=== PATIENT | female | born 1990 | race Caucasian/White ===

== ENCOUNTER 2017-02-28 02:33 | Observation (INO) | payer OTHER, BC ==
[2017-02-28 05:23] VITALS: BP 121/71
[2017-02-28] MEDS ORDERED: Terbutaline 1 MG/ML SDV SUBCUT ONE (07:48)
[2017-02-28] MEDS ORDERED: Betamethasone Acetate/Betamethasone Sod Phosphate 30 MG/5 ML MDV IM ONE (07:49)
[2017-02-28] MEDS ORDERED: Ampicillin 2 GM in Sodium Chloride 0.9% 100 ML IV ONE (07:50)
--- NOTE | 2017-02-28 08:29 | PCM.SN ---
- Free Text/Narrative Note: Evaluation Note OB Physician: Dr. Willard [place] HPI: Mabel Wells is a 26-year-old at at 34 weeks 6 days by LMP consistent with 12 week ultrasound who presents following a trauma to her abdomen after stepping off of a letter at work. She reports that around 12:20 AM while she was working she stepped off a ladder and her left leg got caught in his her abdomen and left breast. She reports that after this happened she felt okay but then had decreased movement and started having contractions. She reports that the contractions are about every 5 minutes apart and were strong enough to be felt. She denies any vaginal bleeding or leaking of fluid. After several hours she did start to feel the baby move more frequently. She denies any sharp abdominal pain. Denies any dysuria or urinary frequency. Her care has been with Dr. Willard [place] and is complicated by: 1. Nausea and vomiting in early in the , currently resolved Vitals: Vital Signs - 8 hr 02/28/17 03:00 Temperature [ 37.1 C Temporal] Respiratory 18 Rate Blood Pressure 121/71 [Left Upper Arm ] O2 Sat by Pulse 98 Oximetry Physical Examination: General: No acute distress, alert and oriented Lungs: Clear to auscultation bilaterally Heart: Regular rate and rhythm Abdomen: Soft, nontender, nondistended, gravid Extremities: trace edema noted in bilateral lower extremities to knees Cervical exam: 125/-3/soft/posterior @ 0400 ---> 2/35/-3/soft/posterior @ 0615 FHT: 140s, moderate variability, positive 15x15 accelerations, no decelerations [place]: Every 4-5 minutes with increasing intensity PMH: History of left breast lump PSH: Denies [employer] History: Denies history of abnormal Pap smears Denies history of STIs SH: Remote history of tobacco use at 19-19, no tobacco use in , occasional second hand smoke exposure in , denies alcohol or drug use in FH: Mother with heart murmur Labs: Laboratory Results - last 24 hr 02/28/17 Range/Units 04:07 Urine Color Yellow (Yellow) Urine Appearance Slt cloudy H (Clear) Urine pH 5.5 (5.0-8.0) Ur Specific [place] > or = 1.030 (1.005-1.030) Urine Protein Negative (Negative) Urine Glucose (UA) Negative (Negative) Urine Ketones Negative (Negative) Urine Occult Blood Negative (Negative) Urine Nitrite Negative (Negative) Urine Bilirubin Negative (Negative) Urine Urobilinogen 0.2 (0.2-1.0) Ur Leukocyte Esterase 2+ H (Negative) Urine RBC 5-10 H (0-5) /hpf Urine WBC 20-30 H (0-5) /hpf Ur Epithelial Cells 5-10 H (0-5) /hpf Calcium Oxalate Crystal Rare H (NONE) Urine Bacteria Many H (FEW) /hpf Urine Mucus Many H (FEW) /hpf Interventions: Terbutaline 250 mcg IM prior to transport Betamethasone 12 mg IM prior to transport Ampicillin 2 g IV prior to transport GBS swab collected and sent to lab Urine culture pending for suspected UTI Assessment and Plan: Mabel Wells is a 26 year old at 34 weeks 6 days by LMP consistent with 12 week U/S with labor with cervical change from 1 cm to 2 cm dilated and continued painful contractions Patient transferred to [facility] with Dr. Isacc Roberts as accepting patient. Mp Early MD 02/28/17 8:25 AM
--- NOTE | 2017-03-03 17:52 | PCM.LDHP ---
L&D History of Present Illness - General Date of Service: 02/28/17 Admit Problem/Dx: Patient Status Order with Admit Dx/Problem 02/28/17 04:07 Patient Status [ADT] Routine Admission Diagnosis/Problem Admission Diagnosis/Problem Source of Information: Patient History Limitations: Reports: No Limitations - History of Present Illness Introduction:: Mabel Wells is a 26-year-old at at 34 weeks 6 days by LMP consistent with 12 week ultrasound who presents following a trauma to her abdomen after stepping off of a letter at work. She reports that around 12:20 AM while she was working she stepped off a ladder and her left leg got caught in his her abdomen and left breast. She reports that after this happened she felt okay but then had decreased movement and started having contractions. She reports that the contractions are about every 5 minutes apart and were strong enough to be felt. She denies any vaginal bleeding or leaking of fluid. After several hours she did start to feel the baby move more frequently. She denies any sharp abdominal pain. Denies any dysuria or urinary frequency. Location, : Reports: Abdomen, Lower back, Pelvic Severity: Moderate Improves with: Reports: None Worsens with: Reports: None Associated Symptoms: Denies: vaginal bleeding, vaginal fluid Present Illness Comments:: Mabel Wells is a 26-year-old at at 34 weeks 6 days by LMP consistent with 12 week ultrasound who presents following a trauma to her abdomen after stepping off of a letter at work. She reports that around 12:20 AM while she was working she stepped off a ladder and her left leg got caught in his her abdomen and left breast. She reports that after this happened she felt okay but then had decreased movement and started having contractions. She reports that the contractions are about every 5 minutes apart and were strong enough to be felt. She denies any vaginal bleeding or leaking of fluid. After several hours she did start to feel the baby move more frequently. She denies any sharp abdominal pain. Denies any dysuria or urinary frequency. - Related Data Allergies/Adverse Reactions: Allergies Allergy/AdvReac Type Severity Reaction Status Date / Time Sulfa (Sulfonamide Allergy Nausea and Verified 12/21/16 07:47 Antibiotics) Vomiting Home Medications: Home Meds Ondansetron [Zofran] 4 mg PO Q8H PRN #30 tab 12/17/16 [Rx] Past Medical History - Past Health History Medical/Surgical History: Denies Medical/Surgical History Social & Family History - Tobacco Use Smoking Status *Q: Never Smoker - Recreational Drug Use Recreational Drug Use: No H&P Review of Systems - Review of Systems: Review Of Systems: See Below General: Denies: Fever, Chills Gastrointestinal: Reports: Abdominal Pain. Denies: Constipation, Diarrhea, Nausea, Vomiting Genitourinary: Denies: Dysuria, Frequency, Burning, Pain, Urgency, Flank Pain L&D Exam - Exam Exam: See Below - Vital Signs Vital Signs: Last Vital Signs Temp 37.1 C 02/28/17 03:00 Pulse Resp 18 02/28/17 03:00 BP 121/71 02/28/17 03:00 Pulse Ox 98 02/28/17 03:00 Weight: 84.368 kg - OB Specific Contraction Duration (sec): 45-60 Contraction Frequency (min): 4-5 Contraction Intensity: Moderate Movement: Active Heart Tones: Present Heart Tones per Min: 140 (positive accelerations, no decelerations) Heart Rate (FHR) Variability: Moderate (6-25 bmp) Presentation: Vertex - Wilson Score Wilson Score Cervix Position: Midposition Wilson Score Consistency: Medium Wilson Score Effacement: 31-50% Wilson Score Dilation: 1-2 cm Wilson Score Infant's Station: -3 Wilson Score Total: 4 - Exam General: Alert, Oriented, Cooperative, Mild Distress HEENT: Conjunctiva Clear, EOMI Neck: Supple, Trachea Midline Lungs: Clear to Auscultation, Normal Respiratory Effort Cardiovascular: Regular Rate, Regular Rhythm GI/Abdominal Exam: Soft, Non-Tender, No Distention, Other (gravid). No: Guarding, Rebound Genitourinary: Normal external exam Extremities: Normal Inspection, No Pedal Edema Skin: Warm, Dry, Intact Psychiatric: Alert, Normal Affect, Normal Mood - Patient Data Edwin Results Last 24 hrs: Microbiology 02/28/17 Unknown Urine Culture - Final Urine, Voided MIXED NAEL SUGGESTIVE OF CONTAMINATION. - Problem List (1) 34 weeks gestation of SNOMED Code(s): 22935430 ICD Code: Z3A.34 - 34 WEEKS GESTATION OF Status: Acute (2) labor in third trimester SNOMED Code(s): 4180959 ICD Code: O60.03 - LABOR WITHOUT DELIVERY, THIRD TRIMESTER Status: Acute Problem List Initiated/Reviewed/Updated: Yes Assessment/Plan Comment:: Assessment and Plan: Mabel Wells is a 26 year old at 34 weeks 6 days by LMP consistent with 12 week U/S with labor with cervical change from 1 cm to 2 cm dilated and continued painful contractions Terbutaline 250 mcg IM prior to transport Betamethasone 12 mg IM prior to transport Ampicillin 2 g IV prior to transport GBS swab collected and sent to lab Urine culture pending for suspected UTI Patient transferred to [facility] with Dr. Isacc Roberts as accepting patient.
== END 2017-02-28 07:57 | disposition critical access hospital (66) ==
LOC: UNDOADMOB 02:33 → JD.OB 02:33 → JD.OBCHECK 02:33 → UNDODISOB 02:33 → JD.OB 02:37 → JD.OBCHECK 02:37 → JD.OB 04:07 → JD.OBCHECK 04:07 → UNDOADMOB 04:07 → JD.OB 04:07 → UNDODISOB 09:05 → EDSTATUS 03-23 12:54
PROVIDERS: ADMIT Obstetrics & Gynecology; ATTEND Obstetrics & Gynecology
DX: O60.03 Preterm labor without delivery, third trimester (principal); Z3A.34 34 weeks gestation of pregnancy
CPT/HCPCS: 59025; 81001; 87086; 87653; 96365; 96372; 96374; G0378; J0290; J0702; J3105; J7030

== ENCOUNTER 2017-04-11 21:15 | Inpatient (IN) | payer BC ==
[2017-04-11] MEDS ORDERED: Ondansetron 4 MG/2 ML SDV IVPUSH PRN ×2 (21:27→21:52)
[2017-04-11] MEDS ORDERED: Nalbuphine 20 MG/1 ML Amp IVPUSH PRN (21:27)
[2017-04-11] MEDS ORDERED: Sodium Chloride 0.9% 10 ML Syringe FLUSH PRN (21:27)
[2017-04-11] MEDS ORDERED: Oxytocin/Lactated Ringers 10 UNIT/1,000 ML BAG IV SCH (21:30)
[2017-04-11] MEDS ORDERED: fentaNYL 100 MCG/2 ML SDV EPIDUR PRN (21:52)
[2017-04-11] MEDS ORDERED: diphenhydrAMINE 50 MG/ML SDV IVPUSH PRN (21:52)
[2017-04-11] MEDS ORDERED: ePHEDrine 50 MG/ML SDV IVPUSH PRN (21:52)
[2017-04-11] MEDS ORDERED: Bupivacaine/fentaNYL/NS 100 ML Bag EPIDUR SCH (22:00)
--- NOTE | 2017-04-11 22:05 | PCM.PREANE ---
Preanesthetic Assessment - Anesthesia/Transfusion/Family Hx Anesthesia History: No Prior Anesthesia Family History of Anesthesia Reaction: No Transfusion History: No Prior Transfusion(s) - Physical Assessment Pulse: 82 O2 Sat by Pulse Oximetry: 100 Respiratory Rate: 22 Blood Pressure: 150/85 Temperature: 36.6 C Weight: 87.543 kg ASA Class: 2 Mental Status: Alert & Oriented x3 Airway Class: Mallampati = 1 Dentition: Reports: Normal Dentition Thyro-Mental Finger Breadths: 3 Mouth Opening Finger Breadths: 3 ROM/Head Extension: Full Lungs: Clear to Auscultation, Normal Respiratory Effort Cardiovascular: Regular Rate, Regular Rhythm - Allergies Allergies/Adverse Reactions: Allergies Allergy/AdvReac Type Severity Reaction Status Date / Time Sulfa (Sulfonamide Allergy Nausea and Verified 12/21/16 07:47 Antibiotics) Vomiting - Acknowledgements Anesthesia Type Planned: Epidural Pt an Appropriate Candidate for the Planned Anesthesia: Yes Alternatives and Risks of Anesthesia Discussed w Pt/Guardian: Yes Pt/Guardian Understands and Agrees with Anesthesia Plan: Yes PreAnesthesia Questionnaire - Past Health History Medical/Surgical History: Denies Medical/Surgical History - SUBSTANCE USE Smoking Status *Q: Never Smoker Recreational Drug Use History: No - HOME MEDS Home Medications: Home Meds Acetaminophen [Tylenol] 650 mg PO Q4HR PRN 03/31/17 [History] Pnv No.122/Iron/Folic Acid [ Multi Tablet] 1 each PO DAILY 03/31/17 [ History] - CURRENT (IN HOUSE) MEDS Current Meds: Current Medications Diphenhydramine HCl (Benadryl) 25 mg IVPUSH Q6H PRN PRN Reason: Pruritis Ephedrine Sulfate (Ephedrine Sulfate) 5 mg IVPUSH ASDIRECTED PRN PRN Reason: Hypotension Fentanyl (Sublimaze) 100 mcg EPIDUR ONETIME PRN PRN Reason: Pain Fentanyl/Bupivacaine HCl (Fentanyl/Bupivacaine/Ns 2 Mcg-0.125% 100 Ml) 100 ml EPIDUR ASDIRECTED NNEKA Lactated Ringer's (Ringers, Lactated) 1,000 mls @ 100 mls/hr IV ASDIRECTED NNEKA Oxytocin/Lactated Ringer's (Pitocin In Lr 10 Units/1,000 Ml) 10 unit in 1,000 mls @ 500 mls/hr IV .CONTINUOUS NNEKA Nalbuphine HCl (Nubain) 10 mg IVPUSH Q2H PRN PRN Reason: Pain (moderate 4-6) Ondansetron HCl (Zofran) 4 mg IVPUSH Q4H PRN PRN Reason: Nausea/Vomiting Ondansetron HCl (Zofran) 4 mg IVPUSH ONETIME PRN PRN Reason: Nausea/Vomiting Sodium Chloride (Saline Flush) 10 ml FLUSH ASDIRECTED PRN PRN Reason: Keep Vein Open
[2017-04-11] MEDS: Lactated Ringers 1,000 ML IV SCH (22:15)
[2017-04-11] MEDS ORDERED: Bupivacaine 0.25% 10 ML SDV ONE (22:22)
[2017-04-12] MEDS ORDERED: Lidocaine 1% 50 ML MDV ONE (02:23)
--- NOTE | 2017-04-12 03:00 | PCM.LDHP ---
L&D History of Present Illness - General Date of Service: 04/07/17 Admit Problem/Dx: Patient Status Order with Admit Dx/Problem 04/11/17 21:27 Patient Status [ADT] Routine Admission Diagnosis/Problem Admission Diagnosis/Problem Source of Information: Patient History Limitations: Reports: No Limitations - History of Present Illness Introduction:: 26-year-old 000 AMPARO 04/05/17 admitted to labor and delivery at 40 weeks and 6 days with contractions cervix 5 cm dilated patient GBS negative on bag of chaney intact be positive antibody screen negative hemoglobin hematocrit 15.2 and 42.3 on 09/29/16 platelets 246,000 rubella immune serology nonreactive negative hepatitis B surface antigen HIV negative Chlamydia and gonorrhea negative on 01/19/17 hemoglobin hematocrit 13.3/38.0 platelets 245, 001 hour OB glucose screen 126 Timing/Duration: Reports: hour(s): Location, : Reports: Abdomen, Lower back Quality: Reports: Ache, Pressure Pain Score: 0 Improves with: Reports: None Worsens with: Reports: None Associated Symptoms: Reports: N - Related Data Allergies/Adverse Reactions: Allergies Allergy/AdvReac Type Severity Reaction Status Date / Time Sulfa (Sulfonamide Allergy Nausea and Verified 04/11/17 23:59 Antibiotics) Vomiting Home Medications: Home Meds Pnv No.122/Iron/Folic Acid [ Multi Tablet] 1 each PO DAILY 03/31/17 [ History] Past Medical History - Past Health History Medical/Surgical History: Denies Medical/Surgical History HEENT History: Reports: Other (See Below) Other HEENT History: mono-vision 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: - Past Surgical History HEENT Surgical History: Reports: None Social & Family History - Tobacco Use Smoking Status *Q: Never Smoker Second Hand Smoke Exposure: No - Caffeine Use Caffeine Use: Reports: Soda - Recreational Drug Use Recreational Drug Use: No H&P Review of Systems - Review of Systems: Review Of Systems: See Below General: Reports: No Symptoms HEENT: Reports: No Symptoms Pulmonary: Reports: No Symptoms Cardiovascular: Reports: No Symptoms Gastrointestinal: Reports: No Symptoms Genitourinary: Reports: No Symptoms Musculoskeletal: Reports: No Symptoms Skin: Reports: No Symptoms Psychiatric: Reports: No Symptoms Neurological: Reports: No Symptoms Hematologic/Lymphatic: Reports: No Symptoms Immunologic: Reports: No Symptoms L&D Exam - Exam Exam: See Below - Vital Signs Vital Signs: Last Vital Signs Temp 98 F 04/11/17 22:30 Pulse 70 04/12/17 00:00 Resp 22 H 04/11/17 22:30 BP 150/85 H 04/11/17 22:30 Pulse Ox 100 04/11/17 22:30 Weight: 193 lb - OB Specific Contraction Intensity: Moderate to Strong Movement: Active Heart Tones: Present Heart Tones per Min: 140 Heart Rate (FHR) Variability: Moderate (6-25 bmp) Presentation: Vertex - Wilson Score Wilson Score Cervix Position: Anterior Wilson Score Consistency: Soft Wilson Score Effacement: 51-70% Wilson Score Dilation: > 5 cm Wilson Score 's Station: -1 ,0 Wilson Score Total: 11 - Exam General: Alert, Oriented HEENT: PERRLA, Conjunctiva Clear, EACs Clear, EOMI, Hearing Intact, Mucosa Moist & [place], Nares Patent, Normal Nasal Septum, Posterior Pharynx Clear, TMs Clear Neck: Supple, Trachea Midline Lungs: Clear to Auscultation, Normal Respiratory Effort Cardiovascular: Regular Rate, Regular Rhythm GI/Abdominal Exam: Normal Bowel Sounds, Soft, Non-Tender, No Organomegaly, No Distention, No Abnormal Bruit, No Mass, Pelvis Stable Genitourinary: Normal external exam, Normal bimanual exam, Normal speculum exam Back Exam: Normal Inspection, Full Range of Motion Extremities: Normal Inspection, Normal Range of Motion, Non-Tender, No Pedal Edema, Normal Capillary Refill Skin: Warm, Dry, Intact Neurological: Reflexes Equal Bilateral Psychiatric: Alert, Normal Affect, Normal Mood - Patient Data Lab Results Last 24 hrs: Laboratory Results - last 24 hr 04/11/17 Range/Units 21:40 WBC 9.46 (3.98-10.04) K/mm3 RBC 4.83 (3.98-5.22) M/mm3 Hgb 14.3 (11.2-15.7) gm/L Hct 40.8 (34.1-44.9) % MCV 84.5 (79.4-94.8) fl MCH 29.6 (25.6-32.2) pg MCHC 35.0 (32.2-35.5) g/dl RDW Std Deviation 40.1 (36.4-46.3) fL Plt Count 199 (182-369) K/mm3 MPV 10.6 (9.4-12.3) fl Neut % (Auto) 67.5 (34.0-71.1) % Lymph % (Auto) 23.8 (19.3-51.7) % [place] % (Auto) 7.9 (4.7-12.5) % Eos % (Auto) 0.5 L (0.7-5.8) Baso % (Auto) 0.1 (0.1-1.2) % Neut # (Auto) 6.38 H (1.56-6.13) K/mm3 Lymph # (Auto) 2.25 (1.18-3.74) K/mm3 [place] # (Auto) 0.75 H (0.24-0.36) K/mm3 Eos # (Auto) 0.05 (0.04-0.36) K/mm3 Baso # (Auto) 0.01 (0.01-0.08) K/mm3 Result Diagrams: 04/11/17 21:40 - Problem List (1) 41 weeks gestation of SNOMED Code(s): 27138695 ICD Code: Z3A.41 - 41 WEEKS GESTATION OF Status: Acute Current Visit: Yes Problem List Initiated/Reviewed/Updated: No Orders Last 24hrs: Active Orders 24 hr Category Date Time Status Patient Status [ADT] Routine ADT 04/11/17 21:27 Active Activity as Tolerated [RC] PFP Care 04/11/17 21:27 Active Communication Order [RC] ASDIRECTED Care 04/11/17 21:27 Active Notify Provider [RC] ASDIRECTED Care 04/11/17 21:52 Active Notify Provider [RC] PFP Care 04/11/17 21:27 Active Notify Provider [RC] PRN Care 04/11/17 21:27 Active Peripheral IV Care [RC] . DIRECTED Care 04/11/17 21:27 Active Pump Management, Intrathecal [RC] ASDIRECTED Care 04/11/17 21:28 Active Vital Signs [RC] PER UNIT ROUTINE Care 04/11/17 21:27 Active Clear Liquid Diet [DIET] Diet 04/11/17 Dinner Active Bupivacaine/fentaNYL/NS [fentaNYL/Bupivacaine/NS 2 MCG- Med 04/11/17 22:00 Active 0.125% 100 ML] 100 ml EPIDUR ASDIRECTED Lactated Ringers [Ringers, Lactated] 1,000 ml Med 04/11/17 21:30 Active IV ASDIRECTED Nalbuphine [Nubain] Med 04/11/17 21:27 Active 10 mg IVPUSH Q2H PRN Ondansetron [Zofran] Med 04/11/17 21:52 Active 4 mg IVPUSH ONETIME PRN Ondansetron [Zofran] Med 04/11/17 21:27 Active 4 mg IVPUSH Q4H PRN Oxytocin/Lactated Ringers [Pitocin in LR 10 Units/1,000 Med 04/11/17 21:30 Active ML] 10 unit in 1,000 ml IV .CONTINUOUS Sodium Chloride 0.9% [Saline Flush] Med 04/11/17 21:27 Active 10 ml FLUSH ASDIRECTED PRN diphenhydrAMINE [Benadryl] Med 04/11/17 21:52 Active 25 mg IVPUSH Q6H PRN ePHEDrine [ePHEDrine Sulfate] Med 04/11/17 21:52 Active 5 mg IVPUSH ASDIRECTED PRN fentaNYL [Sublimaze] Med 04/11/17 21:52 Active 100 mcg EPIDUR ONETIME PRN Electronic Heart Tones Ext w TOCO [WOMSER] Oth 04/11/17 21:27 Ordered Routine Electronic Heart Tones Internal [WOMSER] Per Unit Oth 04/11/17 21:27 Ordered Routine Peripheral IV Insertion Adult [OM.PC] Routine Oth 04/11/17 21:27 Ordered Resuscitation Status Routine Resus Stat 04/11/17 21:27 Ordered Medication Orders Diphenhydramine HCl (Benadryl) 25 mg IVPUSH Q6H PRN PRN Reason: Pruritis Ephedrine Sulfate (Ephedrine Sulfate) 5 mg IVPUSH ASDIRECTED PRN PRN Reason: Hypotension Fentanyl (Sublimaze) 100 mcg EPIDUR ONETIME PRN PRN Reason: Pain Last Admin: 04/11/17 22:23 Dose: 100 mcg Fentanyl/Bupivacaine HCl (Fentanyl/Bupivacaine/Ns 2 Mcg-0.125% 100 Ml) 100 ml EPIDUR ASDIRECTED NNEKA Last Admin: 04/11/17 22:23 Dose: 100 ml Lactated Ringer's (Ringers, Lactated) 1,000 mls @ 100 mls/hr IV ASDIRECTED NNEKA Oxytocin/Lactated Ringer's (Pitocin In Lr 10 Units/1,000 Ml) 10 unit in 1,000 mls @ 500 mls/hr IV .CONTINUOUS NNEKA Nalbuphine HCl (Nubain) 10 mg IVPUSH Q2H PRN PRN Reason: Pain (moderate 4-6) Ondansetron HCl (Zofran) 4 mg IVPUSH Q4H PRN PRN Reason: Nausea/Vomiting Ondansetron HCl (Zofran) 4 mg IVPUSH ONETIME PRN PRN Reason: Nausea/Vomiting Sodium Chloride (Saline Flush) 10 ml FLUSH ASDIRECTED PRN PRN Reason: Keep Vein Open
--- NOTE | 2017-04-12 03:10 | PCM.DEL ---
L & D Note - General Info Date of Service: 04/12/17 Mother's Due Date: 04/05/17 - Delivery Note Labor: Spontaneous Delivery Outcome: Livebirth (Female liveborn Tuesday04[birth year]12[birth year]17 at 0-23 hours JENNIE nuchal cord times one meconium-stained amnionic fluid Apgars 8/9 weight 3470 grams/ ounds 10.4 ounces.) Infant Delivery Method: Spontaneous Vaginal Delivery-Single Infant Delivery Mode: Spontaneous Presentation: Right Occiput Anterior (JENNIE) Nuchal Cord: Present (Times one) Prep: Povidone-Iodine (Betadine Anesthesia Type: None Anesthetic: Lidocaine (Xylocaine) 1% Plain Local Anesthetic Volume: Other (10 mL) Amniotic Fluid Description: Meconium Stained Episiotomy Type: None Laceration: None Suture type: Other (Monocryl 3) Suture size: 3-0 Placenta: Intact, Spontaneous Cord: 3 Vessels Estimated Blood Loss: 250 Resuscitation Needed: No [place]: Suctioned, Bulb Syringe, Stimulated, Warmed, [place] Used, Warmer Used Provider: Lonny Keller Score 1 min: 8 Score 5 min: 9 - Patient Data Vitals - Most Recent: Last Vital Signs Temp 98 F 04/11/17 22:30 Pulse 70 04/12/17 00:00 Resp 22 H 04/11/17 22:30 BP 150/85 H 04/11/17 22:30 Pulse Ox 100 04/11/17 22:30 Weight - Most Recent: 193 lb Lab Results Last 24 Hours: Laboratory Results - last 24 hr 04/11/17 Range/Units 21:40 WBC 9.46 (3.98-10.04) K/mm3 RBC 4.83 (3.98-5.22) M/mm3 Hgb 14.3 (11.2-15.7) gm/L Hct 40.8 (34.1-44.9) % MCV 84.5 (79.4-94.8) fl MCH 29.6 (25.6-32.2) pg MCHC 35.0 (32.2-35.5) g/dl RDW Std Deviation 40.1 (36.4-46.3) fL Plt Count 199 (182-369) K/mm3 MPV 10.6 (9.4-12.3) fl Neut % (Auto) 67.5 (34.0-71.1) % Lymph % (Auto) 23.8 (19.3-51.7) % [place] % (Auto) 7.9 (4.7-12.5) % Eos % (Auto) 0.5 L (0.7-5.8) Baso % (Auto) 0.1 (0.1-1.2) % Neut # (Auto) 6.38 H (1.56-6.13) K/mm3 Lymph # (Auto) 2.25 (1.18-3.74) K/mm3 [place] # (Auto) 0.75 H (0.24-0.36) K/mm3 Eos # (Auto) 0.05 (0.04-0.36) K/mm3 Baso # (Auto) 0.01 (0.01-0.08) K/mm3 Med Orders - Current: Current Medications Diphenhydramine HCl (Benadryl) 25 mg IVPUSH Q6H PRN PRN Reason: Pruritis Ephedrine Sulfate (Ephedrine Sulfate) 5 mg IVPUSH ASDIRECTED PRN PRN Reason: Hypotension Fentanyl (Sublimaze) 100 mcg EPIDUR ONETIME PRN PRN Reason: Pain Last Admin: 04/11/17 22:23 Dose: 100 mcg Fentanyl/Bupivacaine HCl (Fentanyl/Bupivacaine/Ns 2 Mcg-0.125% 100 Ml) 100 ml EPIDUR ASDIRECTED NNEKA Last Admin: 04/11/17 22:23 Dose: 100 ml Lactated Ringer's (Ringers, Lactated) 1,000 mls @ 100 mls/hr IV ASDIRECTED [facility] Oxytocin/Lactated Ringer's (Pitocin In Lr 10 Units/1,000 Ml) 10 unit in 1,000 mls @ 500 mls/hr IV .CONTINUOUS [facility] Nalbuphine HCl (Nubain) 10 mg IVPUSH Q2H PRN PRN Reason: Pain (moderate 4-6) Ondansetron HCl (Zofran) 4 mg IVPUSH Q4H PRN PRN Reason: Nausea/Vomiting Ondansetron HCl (Zofran) 4 mg IVPUSH ONETIME PRN PRN Reason: Nausea/Vomiting Sodium Chloride (Saline Flush) 10 ml FLUSH ASDIRECTED PRN PRN Reason: Keep Vein Open Discontinued Medications Lidocaine HCl (Xylocaine 1%) Confirm Administered Dose 50 ml .ROUTE .[place] ONE Stop: 04/12/17 02:24 - Problem List & Annotations (1) 41 weeks gestation of SNOMED Code(s): 47194116 Code(s): Z3A.41 - 41 WEEKS GESTATION OF Status: Acute Current Visit: Yes (2) Type IIIc third degree perineal laceration during delivery SNOMED Code(s): 357731964 Code(s): O70.23 - THIRD DEGREE PERINEAL LACERATION DURING DELIVERY, IIIC Status: Acute Current Visit: Yes (3) Meconium stained amniotic fluid, delivered, current hospitalization SNOMED Code(s): 819884012 Code(s): O77.0 - LABOR AND DELIVERY COMPLICATED BY MECONIUM IN AMNIOTIC FLUID Status: Acute Current Visit: Yes (4) Labor and delivery complicated by cord around neck with compression SNOMED Code(s): 073856302 Code(s): O69.1XX0 - LABOR AND DELIVERY COMP BY CORD AROUND NECK, W COMPRSN, UNSP Status: Acute Current Visit: Yes Qualifiers: Fetus number: single or unspecified fetus Qualified Code(s): O69.1XX0 - Labor and delivery complicated by cord around neck, with compression, not applicable or unspecified - Problem List Review Problem List Initiated/Reviewed/Updated: No - My Orders Last 24 Hours: My Active Orders 04/11/17 21:27 Patient Status [ADT] Routine Activity as Tolerated [RC] PFP Communication Order [RC] ASDIRECTED Notify Provider [RC] PFP Notify Provider [RC] PRN Peripheral IV Care [RC] . DIRECTED Vital Signs [RC] PER UNIT ROUTINE Nalbuphine [Nubain] 10 mg IVPUSH Q2H PRN Ondansetron [Zofran] 4 mg IVPUSH Q4H PRN Sodium Chloride 0.9% [Saline Flush] 10 ml FLUSH ASDIRECTED PRN Electronic Heart Tones Ext w TOCO [WOMSER] Routine Electronic Heart Tones Internal [WOMSER] Per Unit Routine Peripheral IV Insertion Adult [OM.PC] Routine Resuscitation Status Routine 04/11/17 21:28 Pump Management, Intrathecal [RC] ASDIRECTED 04/11/17 21:30 Lactated Ringers [Ringers, Lactated] 1,000 ml IV ASDIRECTED Oxytocin/Lactated Ringers [Pitocin in LR 10 Units/1,000 ML] 10 unit in 1,000 ml IV .CONTINUOUS 04/11/17 Dinner Clear Liquid Diet [DIET]
[2017-04-12] MEDS ORDERED: Acetaminophen/oxyCODONE 325-5 MG Tab PO PRN (03:15)
[2017-04-12] MEDS ORDERED: Simethicone 80 MG Tab.Chew PO PRN (03:15)
[2017-04-12] MEDS ORDERED: Acetaminophen 325 MG Tab PO PRN (03:15)
[2017-04-12] MEDS ORDERED: Lanolin 100% Cream 7 GM Tube TOP PRN (03:15)
[2017-04-12] MEDS: Ibuprofen 600 MG Tab PO PRN ×3 (04:17→20:20)
[2017-04-12] MEDS: Docusate Sodium 100 MG Cap PO PRN ×2 (04:17→21:11)
[2017-04-12] MEDS: Benzocaine/Menthol 20%-0.5% Spray 56 GM Canister TOP PRN (04:17)
[2017-04-12] MEDS: Witch Hazel Medicated Pads 100/Jar TOP PRN (04:18)
[2017-04-12] MEDS: Lactated Ringers 1,000 ML IV SCH (05:11)
--- NOTE | 2017-04-12 09:36 | PCM48HPAN ---
Post Anesthesia Note - EVALUATION WITHIN 48HRS OF ANESTHETIC Vital Signs in Normal Range: Yes Patient Participated in Evaluation: Yes Respiratory Function Stable: Yes Airway Patent: Yes Cardiovascular Function Stable: Yes Hydration Status Stable: Yes Pain Control Satisfactory: Yes Nausea and Vomiting Control Satisfactory: Yes Mental Status Recovered: Yes
[2017-04-12] MEDS: Prenatal Multivitamin with Calcium/Folic Acid/Iron Tab PO SCH (13:35)
[2017-04-13] MEDS: Ibuprofen 600 MG Tab PO PRN ×4 (03:30→21:22)
--- NOTE | 2017-04-13 06:41 | PCM.SN ---
- Free Text/Narrative Note: exam Afebrile, chest clear, uterus at umbilicus -1. No heavy vaginal bleeding. No leg cramping.
[2017-04-13] MEDS: Prenatal Multivitamin with Calcium/Folic Acid/Iron Tab PO SCH (08:44)
[2017-04-13] MEDS: Docusate Sodium 100 MG Cap PO PRN ×2 (11:07→21:22)
[2017-04-13] MEDS: Benzocaine/Menthol 20%-0.5% Spray 56 GM Canister TOP PRN (18:02)
[2017-04-13] MEDS: Witch Hazel Medicated Pads 100/Jar TOP PRN (18:02)
[2017-04-14] MEDS: Ibuprofen 600 MG Tab PO PRN ×2 (03:41→12:30)
--- NOTE | 2017-04-14 08:32 | PCM.DCSUM1 ---
Discharge Summary - Hospital Course Free Text/Narrative:: Patient had E PDS completed . Plans, ideations, desire to hurt self or others. Begin sertraline 25 mg daily for 8 days then 50 mg daily dispense 30 refills [address] [place] in 2 weeks. [facility] LIVE L/D Delivery Note Patient Name: MICHELLE WOODWARD Date of : 88 Patient Status: Inpatient Attending Provider: Lonny Keller Date: 04/12/17 03:05 Initialization Date: 04/12/17 03:05 Addendum entered and electronically signed by Lonny Keller MD 04/12/17 17 :35: Correction of entry care under laceration: Should read third degree laceration ( IIIC) repaired with Monocryl 3-30 Original Note: L & D Note - General Info Date of Service: 04/12/17 Mother's Due Date: 04/05/17 - Delivery Note Labor: Spontaneous Delivery Outcome: Livebirth (Female liveborn Tuesday04/12/17 at 0-23 hours JENNIE nuchal cord times one meconium-stained amnionic fluid Apgars 8/9 weight 3470 grams/ ounds 10.4 ounces.) Delivery Method: Spontaneous Vaginal Delivery-Single Infant Delivery Mode: Spontaneous Presentation: Right Occiput Anterior (JENNIE) Nuchal Cord: Present (Times one) Prep: Povidone-Iodine (Betadine Anesthesia Type: None Anesthetic: Lidocaine (Xylocaine) 1% Plain Local Anesthetic Volume: Other (10 mL) Amniotic Fluid Description: Meconium Stained Episiotomy Type: None Laceration: None Suture type: Other (Monocryl 3) Suture size: 3-0 Placenta: Intact, Spontaneous Cord: 3 Vessels Estimated Blood Loss: 250 Resuscitation Needed: No [place]: Suctioned, Bulb Syringe, Stimulated, Warmed, Regent Used, Warmer Used Provider: Lonny Keller Score 1 min: 8 Score 5 min: 9 - Patient Data Vitals - Most Recent: Last Vital Signs Temp 98 F 04/11/17 22:30 Pulse 70 04/12/17 00:00 Resp 22 H 04/11/17 22:30 BP 150/85 H 04/11/17 22:30 Pulse Ox 100 04/11/17 22:30 Weight - Most Recent: 193 lb Lab Results Last 24 Hours: Laboratory Results - last 24 hr 04/11/17 Range/Units 21:40 WBC 9.46 (3.98-10.04) K/mm3 RBC 4.83 (3.98-5.22) M/mm3 Hgb 14.3 (11.2-15.7) gm/L Hct 40.8 (34.1-44.9) % MCV 84.5 (79.4-94.8) fl MCH 29.6 (25.6-32.2) pg MCHC 35.0 (32.2-35.5) g/dl RDW Std Deviation 40.1 (36.4-46.3) fL Plt Count 199 (182-369) K/mm3 MPV 10.6 (9.4-12.3) fl Neut % (Auto) 67.5 (34.0-71.1) % Lymph % (Auto) 23.8 (19.3-51.7) % [place] % (Auto) 7.9 (4.7-12.5) % Eos % (Auto) 0.5 L (0.7-5.8) Baso % (Auto) 0.1 (0.1-1.2) % Neut # (Auto) 6.38 H (1.56-6.13) K/mm3 Lymph # (Auto) 2.25 (1.18-3.74) K/mm3 [place] # (Auto) 0.75 H (0.24-0.36) K/mm3 Eos # (Auto) 0.05 (0.04-0.36) K/mm3 Baso # (Auto) 0.01 (0.01-0.08) K/mm3 Med Orders - Current: Current Medications Diphenhydramine HCl (Benadryl) 25 mg IVPUSH Q6H PRN PRN Reason: Pruritis Ephedrine Sulfate (Ephedrine Sulfate) 5 mg IVPUSH ASDIRECTED PRN PRN Reason: Hypotension Fentanyl (Sublimaze) 100 mcg EPIDUR ONETIME PRN PRN Reason: Pain Last Admin: 04/11/17 22:23 Dose: 100 mcg Fentanyl/Bupivacaine HCl (Fentanyl/Bupivacaine/Ns 2 Mcg-0.125% 100 Ml) 100 ml EPIDUR ASDIRECTED [facility] Last Admin: 04/11/17 22:23 Dose: 100 ml Lactated Ringer's (Ringers, Lactated) 1,000 mls @ 100 mls/hr IV ASDIRECTED [facility] Oxytocin/Lactated Ringer's (Pitocin In Lr 10 Units/1,000 Ml) 10 unit in 1,000 mls @ 500 mls/hr IV [facility] Nalbuphine HCl (Nubain) 10 mg IVPUSH Q2H PRN PRN Reason: Pain (moderate 4-6) Ondansetron HCl (Zofran) 4 mg IVPUSH Q4H PRN PRN Reason: Nausea/Vomiting Ondansetron HCl (Zofran) 4 mg IVPUSH ONETIME PRN PRN Reason: Nausea/Vomiting Sodium Chloride (Saline Flush) 10 ml FLUSH ASDIRECTED PRN PRN Reason: Keep Vein Open Discontinued Medications Lidocaine HCl (Xylocaine 1%) Confirm Administered Dose 50 ml .ROUTE .[facility] ONE Stop: 04/12/17 02:24 - Problem List & Annotations (1) 41 weeks gestation of SNOMED Code(s): 53441693 Code(s): Z3A.41 - 41 WEEKS GESTATION OF Status: Acute Current Visit: Yes (2) Type IIIc third degree perineal laceration during delivery SNOMED Code(s): 019826974 Code(s): O70.23 - THIRD DEGREE PERINEAL LACERATION DURING DELIVERY, IIIC Status: Acute Current Visit: Yes (3) Meconium stained amniotic fluid, delivered, current hospitalization SNOMED Code(s): 020361393 Code(s): O77.0 - LABOR AND DELIVERY COMPLICATED BY MECONIUM IN AMNIOTIC FLUID Status: Acute Current Visit: Yes (4) Labor and delivery complicated by cord around neck with compression SNOMED Code(s): 647413484 Code(s): O69.1XX0 - LABOR AND DELIVERY COMP BY CORD AROUND NECK, W COMPRSN, UNSP Status: Acute Current Visit: Yes Qualifiers: Fetus number: single or unspecified fetus Qualified Code(s): O69.1XX0 - Labor and delivery complicated by cord around neck, with compression, not applicable or unspecified - Problem List Review Problem List Initiated/Reviewed/Updated: No - My Orders Last 24 Hours: My Active Orders 04/11/17 21:27 Patient Status [ADT] Routine Activity as Tolerated [RC] PFP Communication Order [RC] ASDIRECTED Notify Provider [RC] PFP Notify Provider [RC] PRN Peripheral IV Care [RC] . DIRECTED Vital Signs [RC] PER UNIT ROUTINE Nalbuphine [Nubain] 10 mg IVPUSH Q2H PRN Ondansetron [Zofran] 4 mg IVPUSH Q4H PRN Sodium Chloride 0.9% [Saline Flush] 10 ml FLUSH ASDIRECTED PRN Electronic Heart Tones Ext w TOCO [WOMSER] Routine Electronic Heart Tones Internal [WOMSER] Per Unit Routine Peripheral IV Insertion Adult [OM.PC] Routine Resuscitation Status Routine 04/11/17 21:28 Pump Management, Intrathecal [RC] ASDIRECTED 04/11/17 21:30 Lactated Ringers [Ringers, Lactated] 1,000 ml IV ASDIRECTED Oxytocin/Lactated Ringers [Pitocin in LR 10 Units/1,000 ML] 10 unit in 1,000 ml IV .CONTINUOUS 04/11/17 Dinner Clear Liquid Diet [DIET] HPI Initial Comments: Patient had E PDS completed . Plans, ideations, desire to hurt self or others. Begin sertraline 25 mg daily for 8 days then 50 mg daily dispense 30 refills [address] [place] in 2 weeks. [facility] LIVE L/D Delivery Note Patient Name: MICHELLE WOODWARD Date of : 88 Patient Status: Inpatient Attending Provider: Lonny Keller Date: 04/12/17 03:05 Initialization Date: 04/12/17 03:05 Addendum entered and electronically signed by Lonny Keller MD 04/12/17 17 :35: Correction of entry care under laceration: Should read third degree laceration ( IIIC) repaired with Monocryl 3-30 Original Note: L & D Note - General Info Date of Service: 04/12/17 Mother's Due Date: 04/05/17 - Delivery Note Labor: Spontaneous Delivery Outcome: Livebirth (Female liveborn Tuesday04/12/17 at 0-23 hours JENNIE nuchal cord times one meconium-stained amnionic fluid Apgars 8/9 weight 3470 grams/ ounds 10.4 ounces.) Infant Delivery Method: Spontaneous Vaginal Delivery-Single Infant Delivery Mode: Spontaneous Presentation: Right Occiput Anterior (JENNIE) Nuchal Cord: Present (Times one) Prep: Povidone-Iodine (Betadine Anesthesia Type: None Anesthetic: Lidocaine (Xylocaine) 1% Plain Local Anesthetic Volume: Other (10 mL) Amniotic Fluid Description: Meconium Stained Episiotomy Type: None Laceration: None Suture type: Other (Monocryl 3) Suture size: 3-0 Placenta: Intact, Spontaneous Cord: 3 Vessels Estimated Blood Loss: 250 Resuscitation Needed: No : Suctioned, Bulb Syringe, Stimulated, Warmed, Regent Used, Warmer Used Provider: Lonny Keller Score 1 min: 8 Score 5 min: 9 - Patient Data Vitals - Most Recent: Last Vital Signs Temp 98 F 04/11/17 22:30 Pulse 70 04/12/17 00:00 Resp 22 H 04/11/17 22:30 BP 150/85 H 04/11/17 22:30 Pulse Ox 100 04/11/17 22:30 Weight - Most Recent: 193 lb Lab Results Last 24 Hours: Laboratory Results - last 24 hr 04/11/17 Range/Units 21:40 WBC 9.46 (3.98-10.04) K/mm3 RBC 4.83 (3.98-5.22) M/mm3 Hgb 14.3 (11.2-15.7) gm/L Hct 40.8 (34.1-44.9) % MCV 84.5 (79.4-94.8) fl MCH 29.6 (25.6-32.2) pg MCHC 35.0 (32.2-35.5) g/dl RDW Std Deviation 40.1 (36.4-46.3) fL Plt Count 199 (182-369) K/mm3 MPV 10.6 (9.4-12.3) fl Neut % (Auto) 67.5 (34.0-71.1) % Lymph % (Auto) 23.8 (19.3-51.7) % [place] % (Auto) 7.9 (4.7-12.5) % Eos % (Auto) 0.5 L (0.7-5.8) Baso % (Auto) 0.1 (0.1-1.2) % Neut # (Auto) 6.38 H (1.56-6.13) K/mm3 Lymph # (Auto) 2.25 (1.18-3.74) K/mm3 [place] # (Auto) 0.75 H (0.24-0.36) K/mm3 Eos # (Auto) 0.05 (0.04-0.36) K/mm3 Baso # (Auto) 0.01 (0.01-0.08) K/mm3 Med Orders - Current: Current Medications Diphenhydramine HCl (Benadryl) 25 mg IVPUSH Q6H PRN PRN Reason: Pruritis Ephedrine Sulfate (Ephedrine Sulfate) 5 mg IVPUSH ASDIRECTED PRN PRN Reason: Hypotension Fentanyl (Sublimaze) 100 mcg EPIDUR ONETIME PRN PRN Reason: Pain Last Admin: 04/11/17 22:23 Dose: 100 mcg Fentanyl/Bupivacaine HCl (Fentanyl/Bupivacaine/Ns 2 Mcg-0.125% 100 Ml) 100 ml EPIDUR ASDIRECTED NNEKA Last Admin: 04/11/17 22:23 Dose: 100 ml Lactated Ringer's (Ringers, Lactated) 1,000 mls @ 100 mls/hr IV ASDIRECTED [facility] Oxytocin/Lactated Ringer's (Pitocin In Lr 10 Units/1,000 Ml) 10 unit in 1,000 mls @ 500 mls/hr IV [facility] Nalbuphine HCl (Nubain) 10 mg IVPUSH Q2H PRN PRN Reason: Pain (moderate 4-6) Ondansetron HCl (Zofran) 4 mg IVPUSH Q4H PRN PRN Reason: Nausea/Vomiting Ondansetron HCl (Zofran) 4 mg IVPUSH ONETIME PRN PRN Reason: Nausea/Vomiting Sodium Chloride (Saline Flush) 10 ml FLUSH ASDIRECTED PRN PRN Reason: Keep Vein Open Discontinued Medications Lidocaine HCl (Xylocaine 1%) Confirm Administered Dose 50 ml .ROUTE .[facility] ONE Stop: 04/12/17 02:24 - Problem List & Annotations (1) 41 weeks gestation of SNOMED Code(s): 50900845 Code(s): Z3A.41 - 41 WEEKS GESTATION OF Status: Acute Current Visit: Yes (2) Type IIIc third degree perineal laceration during delivery SNOMED Code(s): 838571503 Code(s): O70.23 - THIRD DEGREE PERINEAL LACERATION DURING DELIVERY, IIIC Status: Acute Current Visit: Yes (3) Meconium stained amniotic fluid, delivered, current hospitalization SNOMED Code(s): 196301323 Code(s): O77.0 - LABOR AND DELIVERY COMPLICATED BY MECONIUM IN AMNIOTIC FLUID Status: Acute Current Visit: Yes (4) Labor and delivery complicated by cord around neck with compression SNOMED Code(s): 611903653 Code(s): O69.1XX0 - LABOR AND DELIVERY COMP BY CORD AROUND NECK, W COMPRSN, UNSP Status: Acute Current Visit: Yes Qualifiers: Fetus number: single or unspecified fetus Qualified Code(s): O69.1XX0 - Labor and delivery complicated by cord around neck, with compression, not applicable or unspecified - Problem List Review Problem List Initiated/Reviewed/Updated: No - My Orders Last 24 Hours: My Active Orders 04/11/17 21:27 Patient Status [ADT] Routine Activity as Tolerated [RC] PFP Communication Order [RC] ASDIRECTED Notify Provider [RC] PFP Notify Provider [RC] PRN Peripheral IV Care [RC] . DIRECTED Vital Signs [RC] PER UNIT ROUTINE Nalbuphine [Nubain] 10 mg IVPUSH Q2H PRN Ondansetron [Zofran] 4 mg IVPUSH Q4H PRN Sodium Chloride 0.9% [Saline Flush] 10 ml FLUSH ASDIRECTED PRN Electronic Heart Tones Ext w TOCO [WOMSER] Routine Electronic Heart Tones Internal [WOMSER] Per Unit Routine Peripheral IV Insertion Adult [OM.PC] Routine Resuscitation Status Routine 04/11/17 21:28 Pump Management, Intrathecal [RC] ASDIRECTED 04/11/17 21:30 Lactated Ringers [Ringers, Lactated] 1,000 ml IV ASDIRECTED Oxytocin/Lactated Ringers [Pitocin in LR 10 Units/1,000 ML] 10 unit in 1,000 ml IV .CONTINUOUS 04/11/17 Dinner Clear Liquid Diet [DIET] Brief History: Patient had E PDS completed . Plans, ideations, desire to hurt self or others. Begin sertraline 25 mg daily for 8 days then 50 mg daily dispense [address] [place] in 2 weeks. [facility] LIVE . L/D Delivery Note. [id number]. Date of : 88Patient Status: Inpatient. [facility]: [id number]. Date: 04/12/17 03: 05Initialization Date: 04/12/17 03:05. Addendum entered and electronically signed by Lonny Keller MD 04/12/17 17:35: Correction of entry care under laceration: Should read third degree laceration (IIIC) repaired with Monocryl 3-30. Original Note: L & D Note. - General Info. Date of Service: 04/12/17. Mother's Due Date: 04/05/17. - Delivery Note. Labor: Spontaneous. Delivery Outcome: Livebirth (Female liveborn Tuesday04/12/17 at 0-23 hours JENNIE nuchal cord times one meconium-stained amnionic fluid Apgars 8/9 weight 3470 grams/ ounds 10.4 ounces.). Delivery Method: Spontaneous Vaginal Delivery-Single. Infant Delivery Mode: Spontaneous. Presentation: Right Occiput Anterior (JENNIE). Nuchal Cord: Present (Times one). Prep: Povidone- Iodine (Betadine. Anesthesia Type: None. Anesthetic: Lidocaine (Xylocaine) 1% Plain. Local Anesthetic Volume: Other (10 mL). Amniotic Fluid Description: Meconium Stained. Episiotomy Type: None. Laceration: None. Suture type: Other (Monocryl 3). Suture size: 3-0. Placenta: Intact, Spontaneous. Cord: 3 Vessels. Estimated Blood Loss: 250. Resuscitation Needed: No. : Suctioned, Bulb Syringe, Stimulated, Warmed, Regent Used, Warmer Used. Provider: Lonny Keller. Score 1 min: 8. Score 5 min : 9. - Patient Data. Vitals - Most Recent: Last Vital Signs. Temp 98 F 06/24 22:30. Pulse 70 04/12/17 00:00. Resp 22 H 04/11/17 22:30. BP 150/85 H 04/11/17 22:30. Pulse Ox 100 04/11/17 22:30. Weight - Most Recent: 193 lb. Lab Results Last 24 Hours: Laboratory Results - last 24 hr. 04/11/17Range/ Units. 21:40. WBC 9.46 (3.98-10.04) K/mm3. RBC 4.83 (3.98-5.22) M/mm3. Hgb 14.3 (11.2-15.7) gm/L. Hct 40.8 (34.1-44.9) %. MCV 84.5 (79.4-94.8) fl. MCH 29.6 (25.6-32.2) pg. MCHC 35.0 (32.2-35.5) g/dl. RDW Std Deviation 40.1 (36.4-46.3) fL. Plt Count 199 (182-369) K/mm3. MPV 10.6 (9.4-12.3) fl. Neut % (Auto) 67.5 (34.0-71.1) %. Lymph % (Auto) 23.8 (19.3-51.7) %. [place] % (Auto) 7.9 (4.7-12.5) %. Eos % (Auto) 0.5 L (0.7-5.8). Baso % (Auto) 0.1 (0.1-1.2) %. Neut # (Auto) 6.38 H (1.56-6.13) K/mm3. Lymph # (Auto) 2.25 (1.18-3.74) K/mm3. [place] # (Auto) 0.75 H (0.24-0.36) K/mm3. Eos # (Auto ) 0.05 (0.04-0.36) K/mm3. Baso # (Auto) 0.01 (0.01-0.08) K/mm3. Med Orders - Current: Current Medications. Diphenhydramine HCl (Benadryl) 25 mg IVPUSH Q6H PRN. PRN Reason: Pruritis. Ephedrine Sulfate (Ephedrine Sulfate) 5 mg IVPUSH ASDIRECTED PRN. PRN Reason: Hypotension. Fentanyl (Sublimaze) 100 mcg EPIDUR ONETIME PRN. PRN Reason: Pain. Last Admin: 04/11/17 22:23 Dose: 100 mcg. Fentanyl/Bupivacaine HCl (Fentanyl/Bupivacaine/Ns 2 Mcg-0.125% 100 Ml) 100 ml EPIDUR ASDIRECTED [facility]. Last Admin: 04/11/17 22:23 Dose: 100 ml. Lactated Ringer's (Ringers, Lactated) 1,000 mls @ 100 mls/hr IV ASDIRECTED [facility]. Oxytocin/Lactated Ringer's (Pitocin In Lr 10 Units/1,000 Ml) 10 unit in 1 ,000 mls @ 500 mls/hr IV .CONTINUOUS N[facility]KA. Nalbuphine HCl (Nubain) 10 mg IVPUSH Q2H PRN. PRN Reason: Pain (moderate 4-6). Ondansetron HCl (Zofran) 4 mg IVPUSH Q4H PRN. PRN Reason: Nausea/Vomiting. Ondansetron HCl (Zofran) 4 mg IVPUSH ONETIME PRN. PRN Reason: Nausea/Vomiting. Sodium Chloride (Saline Flush) 10 ml FLUSH ASDIRECTED PRN. PRN Reason: Keep Vein Open. Discontinued Medications. Lidocaine HCl (Xylocaine 1%) Confirm Administered Dose 50 ml .ROUTE .[facility]. Stop: 04/12/17 02:24. - Problem List & Annotations. (1) 41 weeks gestation of . SNOMED Code(s): 08859077. Code(s): Z3A.41 - 41 WEEKS GESTATION OF Status: Acute Current Visit: Yes. (2) Type IIIc third degree perineal laceration during delivery. SNOMED Code(s): 224247111. Code(s): O70.23 - THIRD DEGREE PERINEAL LACERATION DURING DELIVERY, IIIC Status: Acute Current Visit: Yes. (3) Meconium stained amniotic fluid , delivered, current hospitalization. SNOMED Code(s): 926838696. Code(s): O77.0 - LABOR AND DELIVERY COMPLICATED BY MECONIUM IN AMNIOTIC FLUID Status: Acute Current Visit: Yes. (4) Labor and delivery complicated by cord around neck with compression. SNOMED Code(s): 392454047. Code(s): O69.1XX0 - LABOR AND DELIVERY COMP BY CORD AROUND NECK, W COMPRSN, UNSP Status: Acute Current Visit: Yes. Qualifiers: Fetus number: single or unspecified fetus Qualified Code(s): O69.1XX0 - Labor and delivery complicated by cord around neck , with compression, not applicable or unspecified. - Problem List Review. Problem List Initiated/Reviewed/Updated: No. - My Orders. Last 24 Hours: My Active Orders. 04/11/17 21:27. Patient Status [ADT] Routine. Activity as Tolerated [RC] PFP. Communication Order [RC] ASDIRECTED. Notify Provider [RC] PFP. Notify Provider [RC] PRN. Peripheral IV Care [RC] . DIRECTED. Vital Signs [RC] PER UNIT ROUTINE. Nalbuphine [Nubain] 10 mg IVPUSH Q2H PRN. Ondansetron [Zofran] 4 mg IVPUSH Q4H PRN. Sodium Chloride 0.9% [Saline Flush ] 10 ml FLUSH ASDIRECTED PRN. Electronic Heart Tones Ext w TOCO [WOMSER ] Routine. Electronic Heart Tones Internal [WOMSER] Per Unit Routine. Peripheral IV Insertion Adult [OM.PC] Routine. Resuscitation Status Routine. 04/11/17 21:28. Pump Management, Intrathecal [RC] ASDIRECTED. 04/11/17 21:30. Lactated Ringers [Ringers, Lactated] 1,000 ml IV ASDIRECTED. Oxytocin/ Lactated Ringers [Pitocin in LR 10 Units/1,000 ML] 10 unit in 1,000 ml IV .CONTINUOUS. 04/11/17 Dinner. Clear Liquid Diet [DIET] - Discharge Data Discharge Date: 04/14/17 Discharge Disposition: Home, Self-Care 01 Condition: Good - Discharge Diagnosis/Problem(s) (1) 41 weeks gestation of SNOMED Code(s): 05310157 ICD Code: Z3A.41 - 41 WEEKS GESTATION OF Status: Acute Current Visit: Yes (2) Type IIIc third degree perineal laceration during delivery SNOMED Code(s): 826017617 ICD Code: O70.23 - THIRD DEGREE PERINEAL LACERATION DURING DELIVERY, IIIC Status: Acute Current Visit: Yes (3) Meconium stained amniotic fluid, delivered, current hospitalization SNOMED Code(s): 532130045 ICD Code: O77.0 - LABOR AND DELIVERY COMPLICATED BY MECONIUM IN AMNIOTIC FLUID Status: Acute Current Visit: Yes (4) Labor and delivery complicated by cord around neck with compression SNOMED Code(s): 680311565 ICD Code: O69.1XX0 - LABOR AND DELIVERY COMP BY CORD AROUND NECK, W COMPRSN, UNSP Status: Acute Current Visit: Yes Qualifiers: Fetus number: single or unspecified fetus Qualified Code(s): O69.1XX0 - Labor and delivery complicated by cord around neck, with compression, not applicable or unspecified (5) depression SNOMED Code(s): 31805251 ICD Code: F53 - PUERPERAL PSYCHOSIS Status: Acute Current Visit: Yes - Patient Summary/Data Complications: depression E PDS begun on sertraline 25 mg daily for 8 days then 50 mg daily thereafter dispense 30 refills 6. Consults: None Hospital Course: Uneventful - Patient Instructions Diet: Regular Diet as Tolerated Driving: Do Not Drive (48 hours and until effects of sertraline known to not cause drowsiness) Showering/Bathing: May Shower Notify Provider of: Fever, Increased Pain, Swelling and Redness, Drainage, Nausea and/or Vomiting - Discharge Plan Prescriptions/Med Rec: Sertraline [Zoloft] 50 mg PO BEDTIME #30 tab Home Medications: Home Meds Pnv No.122/Iron/Folic Acid [ Multi Tablet] 1 each PO DAILY 03/31/17 [ History] Acetaminophen [Tylenol] 650 mg PO Q4H PRN tablet 04/14/17 [Rx] Benzocaine/Menthol [Dermoplast Pain Relief [place]] 1 spray TOP ASDIRECTED PRN canister 04/14/17 [Rx] Docusate Sodium [Colace] 100 mg PO BID PRN cap 04/14/17 [Rx] Ibuprofen [IJD: Ibuprofen] 600 mg PO Q4H PRN tablet 04/14/17 [Rx] Lanolin [Lansinoh HPA] 1 applic TOP ASDIRECTED PRN tube 04/14/17 [Rx] Sertraline [Zoloft] 50 mg PO BEDTIME #30 tab 04/14/17 [Rx] Referrals: Willard Colorado MD [Physician] - (2 weeks) - Discharge Summary/Plan Comment DC Time >30 min.: No - Patient Data Vitals - Most Recent: Last Vital Signs Temp 98.2 F 04/14/17 04:44 Pulse 77 04/14/17 04:44 Resp 16 04/14/17 04:44 BP 120/84 04/14/17 04:44 Pulse Ox 98 04/14/17 04:44 Weight - Most Recent: 193 lb I&O - Last 24 hours: Intake & Output 04/13/17 04/14/17 04/14/17 22:59 06:59 14:59 Intake Total 240 Balance 240 Med Orders - Current: Current Medications Acetaminophen (Tylenol) 650 mg PO Q4H PRN PRN Reason: mild pain or fever Last Admin: 04/13/17 19:39 Dose: 650 mg Benzocaine/Menthol (Dermoplast Pain Relief [place]) 0 gm TOP ASDIRECTED PRN PRN Reason: Perineal Comfort Measure Last Admin: 04/13/17 18:02 Dose: 1 can Docusate Sodium (Colace) 100 mg PO BID PRN PRN Reason: Constipation Last Admin: 04/13/17 21:22 Dose: 100 mg Emollient Ointment (Lansinoh Hpa) 0 gm TOP ASDIRECTED PRN PRN Reason: Sore Nipples Last Admin: 04/13/17 21:26 Dose: 1 tube Ibuprofen (Motrin) 600 mg PO Q4H PRN PRN Reason: Mild pain or fever Last Admin: 04/14/17 03:41 Dose: 600 mg Oxycodone/Acetaminophen (Percocet 325-5 Mg) 2 tab PO Q4H PRN PRN Reason: Pain (moderate 4-6) Last Admin: 04/14/17 01:15 Dose: 2 tab Prenat Multivit/Medical Equipment Repair Technician/Iron/Folic Ac ( Plus Iron) 1 each PO DAILY NNEKA Last Admin: 04/13/17 08:44 Dose: 1 each Simethicone (Simethicone) 80 mg PO Q4H PRN PRN Reason: Gas Witch Laura (Tucks) 1 pad TOP ASDIRECTED PRN PRN Reason: Hemorrhoid pain Last Admin: 04/13/17 18:02 Dose: 1 jar Discontinued Medications Bupivacaine HCl (Sensorcaine-Mpf 0.25%) 10 ml .ROUTE .[facility] ONE Stop: 04/11/17 22:23 Diphenhydramine HCl (Benadryl) 25 mg IVPUSH Q6H PRN PRN Reason: Pruritis Ephedrine Sulfate (Ephedrine Sulfate) 5 mg IVPUSH ASDIRECTED PRN PRN Reason: Hypotension Fentanyl (Sublimaze) 100 mcg EPIDUR ONETIME PRN PRN Reason: Pain Last Admin: 04/11/17 22:23 Dose: 100 mcg Fentanyl/Bupivacaine HCl (Fentanyl/Bupivacaine/Ns 2 Mcg-0.125% 100 Ml) 100 ml EPIDUR ASDIRECTED NNEKA Last Admin: 04/11/17 22:23 Dose: 100 ml Lactated Ringer's (Ringers, Lactated) 1,000 mls @ 100 mls/hr IV ASDIRECTED NNEKA Last Admin: 04/12/17 05:11 Dose: 100 mls/hr Oxytocin/Lactated Ringer's (Pitocin In Lr 10 Units/1,000 Ml) 10 unit in 1,000 mls @ 500 mls/hr IV .CONTINUOUS NNEKA Last Admin: 04/12/17 02:45 Dose: 500 mls/hr Lidocaine HCl (Xylocaine 1%) Confirm Administered Dose 50 ml .ROUTE .[employer] ONE Stop: 04/12/17 02:24 Last Admin: 04/12/17 02:45 Dose: 50 ml Nalbuphine HCl (Nubain) 10 mg IVPUSH Q2H PRN PRN Reason: Pain (moderate 4-6) Ondansetron HCl (Zofran) 4 mg IVPUSH Q4H PRN PRN Reason: Nausea/Vomiting Ondansetron HCl (Zofran) 4 mg IVPUSH ONETIME PRN PRN Reason: Nausea/Vomiting Sodium Chloride (Saline Flush) 10 ml FLUSH ASDIRECTED PRN PRN Reason: Keep Vein Open *Q Meaningful Use (DIS) - VTE *Q VTE Criteria *Q: - Stroke *Q Stroke Criteria *Q: - AMI *Q AMI Criteria *Q:
[2017-04-14 14:08] VITALS: BP 135/88
[2017-04-14] MEDS: Prenatal Multivitamin with Calcium/Folic Acid/Iron Tab PO SCH (14:12)
== END 2017-04-14 12:45 | disposition home or self-care (01) | DRG 542 ==
LOC: JD.OBCHECK 21:15 → JD.OB 21:32 → OBSVTOIN 04-12 02:23 → JD.OB 04-12 02:23
PROVIDERS: ADMIT Obstetrics & Gynecology; ATTEND Obstetrics & Gynecology
PROC: 10E0XZZ Delivery of Products of Conception, External Approach (ICD-10-PCS; principal; 2017-04-12)
PROC: 0DQR0ZZ Repair Anal Sphincter, Open Approach (ICD-10-PCS; 2017-04-12)
PROC: 00HU33Z Insertion of Infusion Device into Spinal Canal, Percutaneous Approach (ICD-10-PCS; 2017-04-12)
PROC: 3E0R3BZ Introduction of Anesthetic Agent into Spinal Canal, Percutaneous Approach (ICD-10-PCS; 2017-04-12)
DX: O77.0 Labor and delivery complicated by meconium in amniotic fluid (principal); O69.1XX0 Labor and delivery complicated by cord around neck, with compression, not applicable or unspecified; O70.23 Third degree perineal laceration during delivery, IIIc; Z3A.41 41 weeks gestation of pregnancy; Z37.0 Single live birth
CPT/HCPCS: 36415; 51702; 59300; 59409; 85025; A9270-GY; J2590; J3010; J7120